=== PATIENT | male | born 1945 | race Hispanic/Latino ===

== ENCOUNTER 2021-03-11 06:24 | Day surgery (SDC) | payer OTHER ==
[2021-03-04 11:55] LABS: EOSINOPHILS % (AUTO) 3.3 % (0.0-8.0); HEMATOCRIT 36.3 % (42-54); LYMPHOCYTES % (AUTO) 30.8 % (21.0-51.0); MEAN CORPUSCULAR HEMOGLOBIN 30.6 pg (27.0-33.0); MEAN CORPUSCULAR HGB CONC 31.4 g/dL (32.0-36.0); MEAN CORPUSCULAR VOLUME 97.3 fL (79-99); MONOCYTES % (AUTO) 10.9 % (3.0-13.0); NEUTROPHILS % (AUTO) 53.7 % (40.0-77.0); PLATELET COUNT (AUTO) 146 K/uL (130-400); RED BLOOD CELL COUNT(AUTO) 3.73 MIL/uL (4.50-6.20); RED CELL DISTRIBUTION WIDTH 14.2 % (11.0-15.5)
[2021-03-04 12:12] LABS: CREATININE 6.1 mg/dL (0.5-1.5)
[2021-03-04 12:17] LABS: POTASSIUM 6.1 mmol/L (3.5-5.1)
[2021-03-10 14:19] VITALS: BP 145/90
[2021-03-11] VITALS (11 sets, daily range): BP systolic 138–190; BP diastolic 44–94
[~2021-03-11] VITALS: Ht 167.6 cm; Wt 76.2 kg
[~2021-03-11 06:24] MED LIST: BRIM5DRO2 OD; FOLI1TAB85 PO; HUMALOG SQ; KETO5DRO82 OD; LATA2.5D15 OD; LOSA100T58 PO; SEVE800T7 PO; TIMO1DRO5 OD
[2021-03-11] MEDS ORDERED: PAPAVERINE HCL 30 MG/ML 2ML VIAL ONE (06:58)
[2021-03-11] MEDS ORDERED: BUPIVACAINE/PF 0.25% 30ML VIAL IJ ONE (07:10)
[2021-03-11] MEDS ORDERED: MIDAZOLAM HCL 1 MG/ML 2ML VIAL ONE ×4 (07:11→10:27)
[2021-03-11] MEDS ORDERED: ROPIVACAINE 0.5% 5MG/ML 30ML IJ ONE (07:14)
[2021-03-11] MEDS ORDERED: LIDOCAINE HCL 400MG/20ML VIAL ONE (07:15)
[2021-03-11] MEDS ORDERED: 0.9% NACL 500ML IV.SOLN 500 ML IV ONE (07:52)
[2021-03-11] MEDS: CEFAZOLIN SODIUM 1 GM VIAL ONE ×2 (08:04→08:17)
[2021-03-11] MEDS ORDERED: LANTUS SQ (08:14)
[2021-03-11] MEDS ORDERED: PROPOFOL 10 MG/ML 20ML VIAL IV ONE (08:17)
[2021-03-11] MEDS ORDERED: HEPARIN 10,000 UNIT/10ML (1,000 UNIT/ML) VIAL ONE (09:58)
[2021-03-11] MEDS ORDERED: FENTANYL CITRATE PF 50 MCG/1 ML 2ML VIAL ONE (10:33)
[2021-03-11] MEDS ORDERED: GLYCOPYRROLATE 1 MG/5 ML SYRINGE ONE (11:04)
[2021-03-11] MEDS ORDERED: HYDRALAZINE 20MG/ML VIAL ONE (11:32)
== END 2021-03-11 12:30 | disposition home or self-care (01) ==
LOC: DAH 06:24
PROVIDERS: ATTEND Surgery
DX: Z45.2 Encounter for adjustment and management of vascular access device (principal); N18.6 End stage renal disease; I12.0 Hypertensive chronic kidney disease with stage 5 chronic kidney disease or end stage renal disease; E11.22 Type 2 diabetes mellitus with diabetic chronic kidney disease; F41.9 Anxiety disorder, unspecified; I25.10 Atherosclerotic heart disease of native coronary artery without angina pectoris; Z88.5 Allergy status to narcotic agent; Z20.822 Contact with and (suspected) exposure to COVID-19; Z99.2 Dependence on renal dialysis; Z79.899 Other long term (current) drug therapy
CPT/HCPCS: 36415 ×2; 36819; 64415; 64417; 71045; 76942; 80048; 82948 ×2; 84132; 85025; 87635; 93005; A4215; A4216; A4221; A4222; A4223 ×2; A4565; A4649; A4663; A4930; A6223; A6260; A6446; C1713 ×2; C9803; J0360; J0690; J1644 ×2; J2250 ×4; J2704; J2795; J3010; J3490 ×3; J7040; J2440

== ENCOUNTER → 2023-03-11 | Outpatient (CLI) | payer OTHER ==
[~2023-03-11] MED LIST changes: +LANTUS SQ; -LOSA100T58 PO; +LOSA100T59 PO; -TIMO1DRO5 OD; +TIMO1DRO9 OD
== END | disposition home or self-care (01) ==
LOC: RAH 12:12
PROVIDERS: ATTEND Internal Medicine Cardiovascular Disease
DX: I70.0 Atherosclerosis of aorta (principal); M47.815 Spondylosis without myelopathy or radiculopathy, thoracolumbar region; Z95.0 Presence of cardiac pacemaker
CPT/HCPCS: 71046